=== PATIENT | male | born 1985 | race Caucasian/White ===

== ENCOUNTER 2020-10-28 16:43 | Emergency (ER) | payer SELFPAY ==
[2020-10-28] MEDS ORDERED: Ketorolac 15 MG/ML SDV IM ONE (17:57)
--- NOTE | 2020-10-28 18:36 | EDM.PDOC ---
<Trenton Larson - Last Filed: 10/28/20 18:35> ED HPI GENERAL MEDICAL PROBLEM - General Chief Complaint: Upper Extremity Injury/Pain Stated Complaint: RT HAND INJURY Time Seen by Provider: 10/28/20 17:37 R hand Pain Score (Numeric/FACES): 8 - Related Data Allergies Allergy/AdvReac Type Severity Reaction Status Date / Time No Known Allergies Allergy Verified 10/28/20 18:39 Home Meds: Home Meds . [No Known Home Meds] 10/28/20 [History] Departure - Departure Disposition: Home, Self-Care 01 Clinical Impression: Hand pain, right - Discharge Information Instructions: How to Use Cold Therapy, [id number], Pain Medicine Instructions, [id number], Hand Pain Referrals: PCP,None [Primary Care Provider] - Forms: ED Department Discharge Additional Instructions: The patient is informed of any results of their evaluation and diagnostic workup and all questions are answered. They are given discharge instructions and return precautions. The patient is stable for discharge. The patient states they understand and agree with the plan and that they will return if their symptoms get worse or if they have any new concerns. The following information is given to patients seen in the emergency department who are being discharged to home. This information is to outline your options for follow-up care. We provide all patients seen in our emergency department with a follow-up referral. The need for follow-up, as well as the timing and circumstances, are variable depending upon the specifics of your emergency department visit. If you don't have a primary care physician on staff, we will provide you with a referral. We always advise you to contact your personal physician following an emergency department visit to inform them of the circumstance of the visit and for follow-up with them and/or the need for any referrals to a consulting specialist. The emergency department will also refer you to a specialist when appropriate. This referral assures that you have the opportunity for follow-up care with a specialist. All of these measure are taken in an effort to provide you with optimal care, which includes your follow-up. Under all circumstances we always encourage you to contact your private physician who remains a resource for coordinating your care. When calling for follow-up care, please make the office aware that this follow-up is from your recent emergency room visit. If for any reason you are refused follow-up, please contact the [facility] Emergency Department at and asked to speak to the emergency department charge nurse. Your evaluated in the emergency department today. At this time your x-ray does not show any evidence of fracture. I would continue using Tylenol and Motrin [id number] every 6 hours for pain. Please ice the area 20 minutes 4 times a day and elevate the right hand. Given that is your dominant hand I recommend immediate follow-up with orthopedics. Please contact them at the number below. Return for any new or worsening symptoms. [facility] Professional Building [address] [place] [address], [address] [place] [address] Sepsis Event Note (ED) - Evaluation Sepsis Screening Result: No Definite Risk <Noman Rivera - Last Filed: 10/28/20 21:02> ED HPI GENERAL MEDICAL PROBLEM - History of Present Illness INITIAL COMMENTS - FREE TEXT/NARRATIVE: CHIEF COMPLAINT(S): Right hand pain HISTORY OF PRESENT ILLNESS: This is a 35-year-old man without any significant past medical history who presents to the emergency department with right hand pain. The patient states that approximately 3 months ago he injured his right hand. He states that he had a significant amount of swelling and pain at the time however he did not come and get evaluated. He states that it was just finally starting to heal and that pain and swelling has decreased. He states that he was wrestling with his son last night and he fell on his right hand causing it to start to hurt again. He states that the pain is located on the back part of his right hand. He states that over the last 3 months she has had decreased side laster strength and that is about the same. He denies any numbness, tingling. He denies any wrist pain. He states that the pain is rated 6-7 out of 10. He describes it as achy. He states that he tried Aleve and ibuprofen at home without any relief. He denies any aggravating symptoms except for touching it. States that he comes to the emergency department because he figured he should finally have it evaluated. REVIEW OF SYSTEMS: Constitutional: Denies fever, chills. Eyes: Denies eye pain Ears, Nose, Mouth, & Throat: Denies earache Cardiovascular: Denies chest pain Respiratory: Denies shortness of breath Gastrointestinal: Denies Nausea, vomiting, diarrhea, hematochezia. Genitourinary: Denies hematuria MSK: Positive for right hand pain Neurological: Denies blurred vision Psychiatric: Denies depression PAST MEDICAL HISTORY: As per history of present illness and as reviewed below otherwise noncontributory. SURGICAL HISTORY: As per history of present illness and as reviewed below otherwise noncontributory. SOCIAL HISTORY: As per history of present illness and as reviewed below otherwise noncontributory. FAMILY HISTORY: As per history of present illness and as reviewed below otherwise noncontributory. EXAMINATION OF ORGAN SYSTEMS/BODY AREAS: Constitutional: Blood pressure was not obtained. Heart rate was 79, respiratory rate 17 with an oxygen saturation of 95% on room air. Temperature 36.6 General: Overall well-appearing man who is in no acute distress Psychiatric: Appropriate mood and affect. Eyes: No scleral icterus or conjunctival erythema ENMT: Moist mucous membranes. No pharyngeal erythema Cardiovascular: Regular, rate, and rhythm. No gallops, murmurs, or rubs. Bilateral upper extremity pulses symmetric and intact. No peripheral edema. No JVD. Respiratory: Lungs clear to auscultation bilaterally. No wheezes, rales, or rhonchi. Gastrointestinal: Soft, non-tender, non-distended. Normoactive bowel sounds Genitourinary: No suprapubic tenderness Musculoskeletal: There is swelling to the posterior aspect of the patient's right hand. There is no bruising or overlying skin changes. There is no obvious deformity. The patient is able to make an O and touch all of his other fingers. There is no anatomical snuffbox tenderness. The patient does have decreased side laster strength on the right secondary to pain. Skin: No lesions or abrasions. Neurological: Alert, GCS 15 distal sensation is intact MEDICAL DECISION MAKING AND COURSE IN THE ED WITH INTERPRETATION/REVIEW OF DIAGNOSTIC STUDIES: This is a 35-year-old man with a right hand injury that happened approximately 3 months ago who reinjured his hand and presents to the emergency department with right hand pain and swelling. At this time the patient is neurovascularly intact. The patient is right-handed. There is decreased side laster strength however this is limited secondary to the patient experiencing pain. Will obtain an x-ray to evaluate for any bony abnormality. We will provide the patient with Toradol IM for pain relief. I do not believe any other labs or imaging are indicated. The radiological images were viewed by myself along with reading the report from the radiologist. Right hand x-ray does not reveal any fracture or dislocation. Soft tissues are unremarkable. After imaging I did discuss the results with the patient. I discussed with him that given this is his dominant hand I would like him to follow-up with orthopedics this week. I discussed that he should continue using Tylenol and ibuprofen for pain relief. He should also use ice 20 minutes 4 times a day and elevate his right hand. He is to return for any new or worsening symptoms such as cold/right hand, decreased pulses, decrease sensation or worsening weakness. He was amenable to discharge at this time and had no further questions DISPOSITION: The patient was discharged home in stable condition. The patient will follow up with orthopedics this week CONDITION: Fair PROCEDURES: None FINAL IMPRESSION(S)/DIAGNOSES: 1. Acute right hand pain Noman Rivera M.D. Review of Systems - Review of Systems Review Of Systems: See Below ED EXAM, GENERAL - Physical Exam Exam: See Below Course - Vital Signs Last Recorded V/S: Last Vital Signs Temp 36.6 C 10/28/20 17:54 Pulse 79 10/28/20 17:54 Resp 17 10/28/20 17:54 BP Pulse Ox 95 10/28/20 17:54 - Orders/Labs/Meds Meds: Medications Discontinued Medications Generic Name Dose Route Start Last Admin Trade Name Freq PRN Reason Stop Dose Admin Ketorolac Tromethamine 15 mg 10/28/20 17:57 10/28/20 18:41 Toradol IM 10/28/20 17:58 15 mg ONETIME ONE Administration Departure - Departure Time of Disposition: 18:53 Condition: Fair - Discharge Information *PRESCRIPTION DRUG MONITORING PROGRAM REVIEWED*: No *COPY OF PRESCRIPTION DRUG MONITORING REPORT IN PATIENT CHAN: No Sepsis Event Note (ED) - Focused Exam Vital Signs: Vital Signs Temp Pulse Resp Pulse Ox 10/28/20 17:54 36.6 C 79 17 95
--- NOTE | 2020-10-28 18:42 | CR ---
Indication: Injury, pain Technique: Right hand 3 views. Comparison: None Findings: Bones: Alignment is normal. No fractures or bone lesions. Joint spaces: Unremarkable. Soft tissues: Unremarkable. Impression: No acute injury. Dictated by Mauricio Martinez MD @ Oct 28 2020 6:38PM Signed by Dr. Mauricio Martinez @ Oct 28 2020 6:40PM
== END 2020-10-28 19:25 | disposition home or self-care (01) ==
LOC: MW.ED 16:43
DX: M79.641 Pain in right hand (principal)
CPT/HCPCS: 73130; 96372; 99283; J1885; 99282

== ENCOUNTER 2021-02-09 20:23 | Emergency (ER) | payer MEDICARE, OTHER ==
[2021-02-09] MEDS ORDERED: Sodium Chloride 0.9% 2.5 ML Syringe FLUSH PRN (20:25)
[2021-02-09] MEDS ORDERED: Sodium Chloride 0.9% 10 ML Syringe FLUSH PRN (20:25)
--- NOTE | 2021-02-09 20:25 | EDM.PDOC ---
ED HPI GENERAL MEDICAL PROBLEM - General Stated Complaint: CHEST PAIN Time Seen by Provider: 02/09/21 20:24 Source of Information: Reports: Patient History Limitations: Reports: No Limitations - History of Present Illness INITIAL COMMENTS - FREE TEXT/NARRATIVE: 35-year-old male presents for chest pain since 10 AM. Patient denies past medical history. He does smoke cigarettes. He notes that since around 10 AM he has had a mid substernal chest pain radiating into his left shoulder. It is worse with breathing. He went to work today and was able to work and notes that symptoms were waxing and waning throughout the day. Roughly 2 hours prior to arrival symptoms became severe. He is experiencing shortness of breath. No nausea or vomiting. No history of cardiac pathology. L chest Pain Score (Numeric/FACES): 10 - Related Data Allergies Allergy/AdvReac Type Severity Reaction Status Date / Time No Known Allergies Allergy Verified 02/09/21 20:35 Home Meds: Home Meds Acetaminophen/oxyCODONE [Percocet 325-5 MG] 1 each PO Q4H PRN #12 tab 02/09/21 [Rx] Ibuprofen [Motrin] 600 mg PO Q6H PRN #30 tab 02/09/21 [Rx] Past Medical History - Past Health History Medical/Surgical History: Denies Medical/Surgical History Social & Family History - Family History Family Medical History: No Pertinent Family History - Caffeine Use Caffeine Use: Reports: Coffee ED ROS GENERAL - Review of Systems Review Of Systems: Comprehensive ROS is negative, except as noted in HPI. ED EXAM, GENERAL - Physical Exam Exam: See Below Exam Limited By: No Limitations General Appearance: Alert, WD/WN, No Apparent Distress Throat/Mouth: Normal Voice, No Airway Compromise Head: Atraumatic, Normocephalic Neck: Normal Inspection Respiratory/Chest: No Respiratory Distress, Lungs Clear, Normal Breath Sounds, No Accessory Muscle Use Cardiovascular: Normal Peripheral Pulses, Regular Rate, Rhythm, No Edema Extremities: Normal Inspection Neurological: Alert, Normal Gait Psychiatric: Normal Affect, Normal Mood Skin Exam: Warm, Dry, Intact, Normal Color #1 Interpretation EKG Date: 02/09/21 Time: 20:21 Rhythm: NSR Rate (Beats/Min): 102 [place]: Normal P-Wave: Present QRS: Normal ST-T: Normal QT: Normal ND/PQ Interval: 153 Comparison: NA - No Prior EKG EKG Interpretation Comments: non-ischemic sinus tachycardia Course - Vital Signs Last Recorded V/S: Last Vital Signs Temp 98.7 F 02/09/21 20:35 Pulse 100 02/09/21 20:35 Resp 18 02/09/21 20:35 BP 135/76 02/09/21 20:35 Pulse Ox 100 02/09/21 20:35 - Orders/Labs/Meds Orders: Active Orders 24 hr Category Date Time Status Cardiac Monitoring [RC] . DIRECTED Care 02/09/21 20:25 Active EKG Documentation Completion [RC] STAT Care 02/09/21 20:25 Active Pulse Oximetry [RC] ASDIRECTED Care 02/09/21 20:25 Active Acetaminophen/oxyCODONE [Percocet 325-5 MG] Med 02/09/21 22:01 Once 1 tab PO ONETIME ONE Sodium Chloride 0.9% [Saline Flush] Med 02/09/21 20:25 Active 10 ml FLUSH ASDIRECTED PRN Sodium Chloride 0.9% [Saline Flush] Med 02/09/21 20:25 Active 2.5 ml FLUSH ASDIRECTED PRN Saline Lock Insert [OM.PC] Stat Oth 02/09/21 20:25 Ordered Medication Orders Sodium Chloride (Sodium Chloride 0.9% 10 Ml Syringe) 10 ml FLUSH ASDIRECTED PRN PRN Reason: Keep Vein Open Last Admin: 02/09/21 20:44 Dose: 10 ml Documented by: ROBBI Sodium Chloride (Sodium Chloride 0.9% 2.5 Ml Syringe) 2.5 ml FLUSH ASDIRECTED PRN PRN Reason: Keep Vein Open Last Admin: 02/09/21 20:44 Dose: 2.5 ml Documented by: ROBBI Labs: Laboratory Tests 02/09/21 02/09/21 02/09/21 Range/Units 20:28 20:28 20:38 WBC 11.67 H (4.0-11.0) K/uL RBC 4.86 (4.50-5.90) M/uL Hgb 14.1 (13.0-17.0) g/dL Hct 42.8 (38.0-50.0) % MCV 88.1 (80.0-98.0) fL MCH 29.0 (27.0-32.0) pg MCHC 32.9 (31.0-37.0) g/dL RDW Std Deviation 46.5 (28.0-62.0) fl RDW Coeff of Linda 14 (11.0-15.0) % Plt Count 331 (150-400) K/uL MPV 9.70 (7.40-12.00) fL Neut % (Auto) 61.9 (48.0-80.0) % Lymph % (Auto) 27.7 (16.0-40.0) % Butts % (Auto) 8.9 (0.0-15.0) % Eos % (Auto) 1.2 (0.0-7.0) % Baso % (Auto) 0.3 (0.0-1.5) % Neut # (Auto) 7.2 H (1.4-5.7) K/uL Lymph # (Auto) 3.2 H (0.6-2.4) K/uL Butts # (Auto) 1.0 H (0.0-0.8) K/uL Eos # (Auto) 0.1 (0.0-0.7) K/uL Baso # (Auto) 0.0 (0.0-0.1) K/uL Nucleated RBC % 0.0 /100WBC Nucleated RBCs # 0 K/uL INR 1.00 APTT 24.7 (18.6-31.3) SEC D-Dimer, Quantitative < 0.19 (0.0-0.50) mg/L FEU Sodium 140 (136-148) mmol/L Potassium 3.4 L (3.5-5.1) mmol/L Chloride 101 (98-107) mmol/L Carbon Dioxide 28.9 (21.0-32.0) mmol/L BUN 8 (7.0-18.0) mg/dL Creatinine 1.0 (0.8-1.3) mg/dL Est Cr Clr Drug Dosing 112.09 mL/min Estimated GFR (MDRD) > 60.0 ml/min Glucose 55 L (74-106) mg/dL POC Glucose (60-110) mg/dL Calcium 9.0 (8.5-10.1) mg/dL Magnesium (1.8-2.4) mg/dL Total Bilirubin 0.2 (0.2-1.0) mg/dL AST 29 (15-37) IU/L ALT 37 (14-63) IU/L Alkaline Phosphatase 67 (46-116) U/L Troponin I < 0.050 (0.000-0.056) ng/mL Total Protein 7.2 (6.4-8.2) g/dL Albumin 3.6 (3.4-5.0) g/dL Globulin 3.6 (2.6-4.0) g/dL Albumin/Globulin Ratio 1.0 (0.9-1.6) Lipase (73-393) U/L 02/09/21 02/09/21 Range/Units 20:38 21:32 WBC (4.0-11.0) K/uL RBC (4.50-5.90) M/uL Hgb (13.0-17.0) g/dL Hct (38.0-50.0) % MCV (80.0-98.0) fL MCH (27.0-32.0) pg MCHC (31.0-37.0) g/dL RDW Std Deviation (28.0-62.0) fl RDW Coeff of Linda (11.0-15.0) % Plt Count (150-400) K/uL MPV (7.40-12.00) fL Neut % (Auto) (48.0-80.0) % Lymph % (Auto) (16.0-40.0) % Butts % (Auto) (0.0-15.0) % Eos % (Auto) (0.0-7.0) % Baso % (Auto) (0.0-1.5) % Neut # (Auto) (1.4-5.7) K/uL Lymph # (Auto) (0.6-2.4) K/uL Butts # (Auto) (0.0-0.8) K/uL Eos # (Auto) (0.0-0.7) K/uL Baso # (Auto) (0.0-0.1) K/uL Nucleated RBC % /100WBC Nucleated RBCs # K/uL INR APTT (18.6-31.3) SEC D-Dimer, Quantitative (0.0-0.50) mg/L FEU Sodium (136-148) mmol/L Potassium (3.5-5.1) mmol/L Chloride (98-107) mmol/L Carbon Dioxide (21.0-32.0) mmol/L BUN (7.0-18.0) mg/dL Creatinine (0.8-1.3) mg/dL Est Cr Clr Drug Dosing mL/min Estimated GFR (MDRD) ml/min Glucose (74-106) mg/dL POC Glucose 119 H (60-110) mg/dL Calcium (8.5-10.1) mg/dL Magnesium 1.8 (1.8-2.4) mg/dL Total Bilirubin (0.2-1.0) mg/dL AST (15-37) IU/L ALT (14-63) IU/L Alkaline Phosphatase (46-116) U/L Troponin I (0.000-0.056) ng/mL Total Protein (6.4-8.2) g/dL Albumin (3.4-5.0) g/dL Globulin (2.6-4.0) g/dL Albumin/Globulin Ratio (0.9-1.6) Lipase 94 (73-393) U/L Meds: Medications Generic Name Dose Route Start Last Admin Trade Name Jaysonq PRN Reason Stop Dose Admin Sodium Chloride 10 ml 02/09/21 20:25 02/09/21 20:44 Sodium Chloride 0.9% 10 Ml Syringe FLUSH 10 ml ASDIRECTED PRN Administration Keep Vein Open Sodium Chloride 2.5 ml 02/09/21 20:25 02/09/21 20:44 Sodium Chloride 0.9% 2.5 Ml Syringe FLUSH 2.5 ml ASDIRECTED PRN Administration Keep Vein Open Discontinued Medications Generic Name Dose Route Start Last Admin Trade Name Freq PRN Reason Stop Dose Admin Aspirin 324 mg 02/09/21 20:39 02/09/21 20:42 Aspirin 81 Mg Tab.Chew PO 02/09/21 20:40 324 mg ONETIME ONE Administration Al Hydroxide/Mg Hydroxide 15 0 ml 02/09/21 21:11 02/09/21 21:16 ml/ Metoclopramide HCl 5 mg/ PO 02/09/21 21:12 1 each Lidocaine HCl 5 ml ONETIME ONE Administration Diazepam 4 mg 02/09/21 21:23 02/09/21 21:29 Diazepam 2 Mg Tab PO 02/09/21 21:24 4 mg ONETIME ONE Administration Sodium Chloride 1,000 mls @ 999 mls/hr 02/09/21 20:41 02/09/21 20:45 Normal Saline IV 02/09/21 21:41 999 mls/hr .Bolus ONE Administration Morphine Sulfate 4 mg 02/09/21 20:39 02/09/21 20:43 Morphine 4 Mg/Ml Syringe IVPUSH 02/09/21 20:40 4 mg ONETIME ONE Administration - Re-Assessments/Exams Free Text/Narrative Re-Assessment/Exam: 02/09/21 20:40 EKG is nonischemic. Will get labs including troponin and D-dimer. Will give aspirin for possible NSTEMI. Will get morphine for pain. 02/09/21 21:22 Labs are all unremarkable. Patient's pain is down to 4 out of 10 but he still is very uncomfortable. On further history he notes that the pain is worse with movement and worse with picking things up. Feels sharp and stabbing. When he coughed earlier if felt very painful. I did order a GI cocktail in case there is a GI component to this pain. I want to try a muscle relaxant prior to patient discharge to see if this helps with his pain. He does work as a manual labor and it is possible that he has a costochondritis or musculoskeletal type pain. 02/09/21 22:01 Patient's pain is substantially improved. Likely musculoskeletal origin of patient's pain however I recommend patient to come back to the emergency department if pain continues or worsens, shortness of breath develops. Recommend follow-up with primary care for further diagnostic work-up if pain does not go away. Will prescribe short course of analgesia. Departure - Departure Time of Disposition: 22:04 Disposition: Home, Self-Care 01 Condition: Good Clinical Impression: Chest pain Qualifiers: Chest pain type: other chest pain Qualified Code(s): R07.89 - Other chest pain; R07.8 - Other chest pain - Discharge Information Prescriptions: Ibuprofen [Motrin] 600 mg PO Q6H PRN #30 tab PRN Reason: Pain Acetaminophen/oxyCODONE [Percocet 325-5 MG] 1 each PO Q4H PRN #12 tab PRN Reason: Pain Instructions: Nonspecific Chest Pain, Adult Referrals: PCP,Unobtain [Primary Care Provider] - Additional Instructions: You need to follow-up with a primary care physician for further work-up. Information is provided below. If your pain returns or you have difficulty breathing you should come back to the emergency department immediately. The following information is given to patients seen in the emergency department who are being discharged to home. This information is to outline your options for follow-up care. We provide all patients seen in our emergency department with a follow-up referral. The need for follow-up, as well as the timing and circumstances, are variable depending upon the specifics of your emergency department visit. If you don't have a primary care physician on staff, we will provide you with a referral. We always advise you to contact your personal physician following an emergency department visit to inform them of the circumstance of the visit and for follow-up with them and/or the need for any referrals to a consulting specialist. The emergency department will also refer you to a specialist when appropriate. This referral assures that you have the opportunity for follow-up care with a specialist. All of these measure are taken in an effort to provide you with optimal care, which includes your follow-up. Under all circumstances we always encourage you to contact your private physician who remains a resource for coordinating your care. When calling for follow-up care, please make the office aware that this follow-up is from your recent emergency room visit. If for any reason you are refused follow-up, please contact the [facility] Emergency Department at and asked to speak to the emergency department charge nurse. Please follow up with your primary care physician. If you do not have a primary care physician, see below: [facility] [address] [place] [id number] [facility] [address] [place] [id number] [facility] [address] [place] [id number] Sepsis Event Note (ED) - Focused Exam Vital Signs: Vital Signs Temp Pulse Resp BP Pulse Ox 02/09/21 20:35 98.7 F 100 18 135/76 100 - My Orders Last 24 Hours: My Active Orders 02/09/21 20:25 Cardiac Monitoring [RC] . DIRECTED EKG Documentation Completion [RC] STAT Pulse Oximetry [RC] ASDIRECTED Sodium Chloride 0.9% [Saline Flush] 10 ml FLUSH ASDIRECTED PRN Sodium Chloride 0.9% [Saline Flush] 2.5 ml FLUSH ASDIRECTED PRN Saline Lock Insert [OM.PC] Stat 02/09/21 22:01 Acetaminophen/oxyCODONE [Percocet 325-5 MG] 1 tab PO ONETIME ONE - Assessment/Plan Last 24 Hours: My Active Orders 02/09/21 20:25 Cardiac Monitoring [RC] . DIRECTED EKG Documentation Completion [RC] STAT Pulse Oximetry [RC] ASDIRECTED Sodium Chloride 0.9% [Saline Flush] 10 ml FLUSH ASDIRECTED PRN Sodium Chloride 0.9% [Saline Flush] 2.5 ml FLUSH ASDIRECTED PRN Saline Lock Insert [OM.PC] Stat 02/09/21 22:01 Acetaminophen/oxyCODONE [Percocet 325-5 MG] 1 tab PO ONETIME ONE
[2021-02-09] MEDS ORDERED: Aspirin 81 MG Tab.Chew PO ONE (20:39)
[2021-02-09] MEDS ORDERED: Morphine 4 MG/ML Syringe IVPUSH ONE (20:39)
[2021-02-09] MEDS ORDERED: Sodium Chloride 0.9% 1,000 ML IV ONE (20:41)
--- NOTE | 2021-02-09 20:47 | CR ---
Indication: Chest pain Technique: Chest 1 view Comparison: None Findings/Impression: Cardiovascular and mediastinum: Heart size and vasculature are normal in caliber and appearance. Mediastinum is within normal limits. Lungs and pleural space: Lungs are clear. No sign of infiltrate or mass. No sign of pleural effusion. No pneumothorax. Bones and soft tissues: No significant findings. Dictated by Jeanne Moura MD @ Feb 09 2021 8:46PM Signed by Dr. Jeanne Moura @ Feb 09 2021 8:46PM
[2021-02-09 20:58] LABS: BLOOD UREA NITROGEN,BUN 8 mg/dL (7.0-18.0); CARBON DIOXIDE,CO2 28.9 mmol/L (21.0-32.0); CHLORIDE,CL 101 mmol/L (98-107); GLUCOSE RANDOM 55 mg/dL (74-106); POTASSIUM,K 3.4 mmol/L (3.5-5.1); SODIUM,NA 140 mmol/L (136-148)
[2021-02-09] MEDS ORDERED: Alum Hydrox/Mag Hydrox/Simeth 15 ML, Metoclopramide 5 MG, Lidocaine 2% 5 ML PO ONE ×3 (21:11)
[2021-02-09] MEDS ORDERED: Diazepam 2 MG Tab PO ONE (21:23)
[2021-02-09] MEDS ORDERED: Acetaminophen/oxyCODONE 325-5 MG Tab PO ONE (22:01)
== END 2021-02-09 22:25 | disposition home or self-care (01) ==
LOC: MW.ED 20:23
DX: R07.89 Other chest pain (principal)
CPT/HCPCS: 36415; 71045; 80053; 82962; 83690; 83735; 84484; 85025; 85379; 85610; 85730; 93005; 96374; 99285; A9270; J2270; J7030; 93010; 99283